=== PATIENT | male | born 1965 | race Caucasian/White ===

== ENCOUNTER 2021-08-07 09:50 | Emergency (ER) | payer SELFPAY ==
[2021-08-07 09:57] VITALS: BP 76/46; PULSE 53; RESP 16; TEMP 36.9; BMI 32.5
--- NOTE | 2021-08-07 09:59 | ECG_ITS ---
[facility] Test Date: 2021-08-07 Pat Name: Matti Lynn Department: Room: Gender: Male Federal Appellate Clerk: : 1965 Requested By: Matti Aguirre Order Number: [id number] Otilia MD: Stevie Naranjo M.D. Measurements Intervals [place] Rate: 52 P: 153 MA: 199 QRS: 237 QRSD: 132 T: 122 QT: 488 QTc: 454 Interpretive Statements SINUS BRADYCARDIA ARM LEADS REVERSED [INVERTED P AND QRS IN I] No previous ECG available for comparison Electronically Signed On 08-07-2021 10:49:46 AREA SALES MANAGER by Stevie Naranjo M.D. [id number]
[2021-08-07 10:03] VITALS: BP 76/46; PULSE 53; RESP 15; TEMP 36.9; O2SAT 91
--- NOTE | 2021-08-07 10:07 | W.ED.DIZZY ---
HPI - Dizziness General: Chief Complaint: Dizziness Stated Complaint: DIZZY/ GENERAL WEAKNESS Time Seen by Provider: 08/07/21 09:56 History of Present Illness: HPI Narrative: 56-year-old male presents to the emergency room generally weak and dizzy. He recently had some medication adjustments he has a history of A. fib with RVR he is on amiodarone he is also on carvedilol. In addition to that he is on some diuretic which evidently the dose had been changed recently. Nurse initially told me that his carvedilol was initiated recently but patient tells me has been on that for some time. MD elicited complaint: dizziness and lightheadedness Onset (ago): hour(s) Timing: gradual onset Severity: mild Description: lightheadedness, off-balance and near-syncope Context: change in medication and change in body position Exacerbating factors: movement/ambulation and change in body position Relieving factors: remaining still and lying down Associated symptoms: Denies change in hearing, chest pain, chills, cough, diaphoresis, ear discharge, ear pressure, fevers/chills, headache(s), malaise, nausea, nasal congestion, palpitations, rash, short of breath, syncope, tinnitus, vomiting or weakness Associated neuro symptoms: Deny confusion, difficulty speaking, dysphagia, diplopia, extremity weakness, facial numbness, facial weakness, gait changes, numbness in extremities or visual changes Review of Systems Const: Denies: chills, malaise or diaphoresis ENMT: Denies: ear discharge, change in hearing, tinnitus or nasal congestion Card: Denies: chest pain, palpitations or syncope GI: Denies: nausea, vomiting or dysphagia Neuro: Denies: headache(s), numbness in extremities or confusion PFS ED PFSH: Medical History Cardiac defibrillator in place CHF (congestive heart failure) Family history of internal cardiac defibrillator HTN (hypertension) Hyperlipidemia Social History Smoking and tobacco status: former smoker Alcohol intake: never Current occupational status: unemployed Physical Exam Const: COMMON NORMALS: no acute distress GENERAL APPEARANCE: cooperative and comfortable ORIENTATION/CONSCIOUSNESS: Yes awake, Yes oriented to person, Yes oriented to place and Yes oriented to time HENMT: COMMON NORMALS: normocephalic, atraumatic and hearing grossly normal bilaterally HEAD & SCALP: normocephalic and atraumatic Neck/C-Spine: COMMON NORMALS: no JVD Resp: COMMON NORMALS: normal respiratory effort, No retractions, No use of accessory muscles and clear to auscultation bilaterally AUSCULTATION: clear to auscultation bilaterally Cardio: COMMON NORMALS: no JVD, regular rhythm and No murmurs present (Cardio) RATE: bradycardic RHYTHM: regular rhythm GI: COMMON NORMALS: Soft to palpation and No hepatosplenomegaly present AUSCULTATION: Yes normoactive bowel sounds PALPATION: Yes Soft to palpation, No Tenderness to palpation present (GI), No Guarding due to palpation present (GI) and Yes No hepatosplenomegaly present Extremity: COMMON NORMALS: normal to inspection, capillary refill normal, no clubbing, cyanosis or edema, no calf tenderness and no pedal edema Neuro: SENSORIUM/ORIENTATION: Yes oriented to person, Yes oriented to place and Yes oriented to time Skin: COMMON NORMALS: no rashes or lesions noted GENERAL SKIN EXAM: no rashes or lesions noted Course Vital Signs: Vital signs: Vital Signs Temperature 98.4 F 08/07/21 10:03 Pulse Rate 53 L 08/07/21 10:03 Respiratory Rate 15 08/07/21 10:03 Blood Pressure 99/60 08/07/21 10:27 Pulse Oximetry 91 08/07/21 10:03 MDM - Dizziness MDM Narrative: Medical decision making narrative: Reviewing medications it looks as if the patient recently restarted the carvedilol and the dose was increased. environmental laboratory technician and reviewed it appeared they gone from 6.25-12.5. Suspect a lot of his symptoms are side effects from that. We will decrease his carvedilol back to 6.25 twice daily. Even if the had an increase in I think it will still resolve the issues he presents with today we did give him a little fluid his blood pressure is better he is feeling better he still somewhat bradycardic. Cutting the carvedilol down should help that asked him to schedule follow-up appointment with his primary care doctor early next week to reevaluate blood pressure and heart rate. Lab Data: Labs: Lab Results 08/07/21 08/07/21 10:03 10:03 WBC 10.6 10^3/uL H 10 ^3/uL (4.0-10.0) RBC 5.23 10^6/uL 10^6 /uL (4.1-5.3) Hgb 15.7 g/dL g/dL (11.7-16.6) Hct 48.0 % % (42.0-52.0) MCV 91.8 fl fl (80-94) MCH 30.0 pg pg (28.0-34.0) MCHC 32.7 g/dL g/dL (30.0-36.0) RDW 14.6 % % (12.1-15.1) Plt Count 228 10^3/cmm 10^3 /cmm (130-400) MPV 10.2 fL fL (7.4-10.4) Neut % (Auto) 72.8 % % Lymph % (Auto) 13.4 % % [place] % (Auto) 11.4 % % Eos % (Auto) 1.3 % % Baso % (Auto) 0.8 % % Neut # (Auto) 7.70 10^3/uL 10^3 /uL (1.8-7.7) Lymph # (Auto) 1.4 10^3/uL 10^3/ uL (0.8-4.8) [place] # (Auto) 1.2 10^3/uL H 10^ 3/uL (0.2-0.9) Eos # (Auto) 0.1 10^3/uL 10^3/ uL (0.0-0.8) Baso # (Auto) 0.1 10^3/uL 10^3/ uL (0.0-0.1) Nucleated RBC % (a uto) 0 % % Nucleated RBCs # 0.0 /100WBC /100W BC Sodium 141 mmol/L mmol/L (136-145) Potassium 4.1 mmol/L mmol/L (3.5-5.1) Chloride 106 mmol/L mmol/L (98-107) Carbon Dioxide 26 mmol/L mmol/L (22-29) Anion Gap 13.1 (5-19) BUN 22 mg/dL H mg/dL (6-20) Creatinine 1.8 mg/dL H mg/dL (0.7-1.2) GFR Calculation 39.1 mL/min L mL/ min (90-130) Glucose 94 mg/dL mg/dL (65-115) Calculated Osmolal ity 295 mOsm/kg mOsm/ kg (285-295) Calcium 8.2 mg/dL L mg/dL (8.5-10.5) Total Bilirubin 1.0 mg/dL mg/dL (0.15-1.2) AST 15 U/L U/L (0-40) ALT 15 U/L U/L (0-41) Alkaline Phosphata se 115 IU/L IU/L (40-130) Total Protein 6.6 g/dL g/dL (6.6-8.7) Albumin 3.7 g/dL g/dL (3.5-5.2) Globulin 2.9 g/dL g/dL (1.3-4.6) Discharge Plan Discharge Patient Disposition: Home Clinical Impression: Orthostatic hypotension, HTN (hypertension), Bradycardia, Medication side effects Condition: Stable Prescriptions: Changed carvedilol 12.5 mg tablet 6.25 mg PO BID Qty: 60 RF: 2 No Action amiodarone 200 mg tablet 200 mg PO DAILY Qty: 30 RF: 2 Eliquis 5 mg tablet 5 mg PO BID Qty: 60 RF: 2 atorvastatin [Lipitor] 10 mg tablet 10 mg PO DAILY Qty: 30 RF: 2 clopidogrel [Plavix] 75 mg tablet 75 mg PO DAILY Qty: 30 RF: 2 spironolactone 25 mg tablet 25 mg PO QAM Qty: 30 RF: 2 Ventolin HFA 90 mcg/actuation HFA aerosol inhaler 2 puff inhalation Q9H PRN (Reason: shortness of breath or wheezing) RF: 0 bumetanide 2 mg tablet 2 mg PO QAM RF: 0 Benicar 40 mg tablet 20 mg PO BID RF: 0 Discharge Orders: Discharge ED (Routine); Ordered 08/07/21 Ordered By: Matti Martinez Discharge Diet: Usual diet Discharge Activity: Increase activity as tolerated Patient Instructions: Opioid Safety Activity Restrictions/Additional Instructions: Recheck blood pressure and pulse with your primary care doctor in the next 3 to 4 days. Decrease carvedilol to 6.25 (half tablet) twice daily. Coding Level of Care Code ED Motorcycle Riding Instructor for Chg Fwd Exam Comprehensive
[2021-08-07 10:10] LABS: Basophils # 0.1 10^3/uL (0.0-0.1); Basophils % 0.8 %; Eosinophils # 0.1 10^3/uL (0.0-0.8); Eosinophils % 1.3 %; Hemoglobin 15.7 g/dL (11.7-16.6); Lymphocytes # 1.4 10^3/uL (0.8-4.8); Lymphocytes % 13.4 %; Mean Corpuscular HGB Conc 32.7 g/dL (30.0-36.0); Mean Corpuscular Volume 91.8 fl (80-94); Mean Platelet Volume 10.2 fL (7.4-10.4); Monocytes # 1.2 10^3/uL (0.2-0.9); Monocytes % 11.4 %; Neutrophils % 72.8 %; Nucleated Red Blood Cells % 0 %; Platelet Count 228 10^3/cmm (130-400); Red Blood Count 5.23 10^6/uL (4.1-5.3); Red Cell Distribution Width 14.6 % (12.1-15.1); White Blood Count 10.6 10^3/uL (4.0-10.0)
[2021-08-07] MEDS: sodium chloride 0.9% 500 ML 999 ML IV (10:20)
[2021-08-07 10:27] VITALS: BP 78/43; BP 84/44; BP 99/60
[2021-08-07 10:29] LABS: Alanine Aminotransferase 15 U/L (0-41); Albumin Level 3.7 g/dL (3.5-5.2); Alkaline Phosphatase 115 IU/L (40-130); Anion Gap 13.1 (5-19); Aspartate Amino Transferase 15 U/L (0-40); Blood Urea Nitrogen 22 mg/dL (6-20); Calcium 8.2 mg/dL (8.5-10.5); Carbon Dioxide 26 mmol/L (22-29); Chloride 106 mmol/L (98-107); Globulin 2.9 g/dL (1.3-4.6); Glomerular Filtration Rate 39.1 mL/min (90-130); Glucose 94 mg/dL (65-115); Osmolality Calculated 295 mOsm/kg (285-295); Potassium 4.1 mmol/L (3.5-5.1); Sodium 141 mmol/L (136-145); Total Protein 6.6 g/dL (6.6-8.7)
--- NOTE | 2021-08-07 11:12 | PC.NURSE ---
Pt arrived via EMS from [facility]. Pt was started on his regularly scheduled medication last night and was given medication again this morning, it is noted by staff pt has BP medication that he took last night and this morning. Pt states after he ate breakfast he began feeling dizzy and slightly nauseated. Pt reports he felt like he was going to pass out, EMS was called. EMS reports pts BP at 61/42 on arrival, pt given 1000mL bolus NS, which brought BP up slight;ly to 79/50. Pt placed on NC@2L when SATs dropped to 88% on RA. Blood glucose 125, Pt A/O x4, vs taken. Pt BP 76/46 on arrival to ER. Pt placed on monitor, deputy director at bedside
== END 2021-08-07 14:03 | disposition home or self-care (01) ==
PROVIDERS: Emergency Provider Family Medicine
DX: I95.1 Orthostatic hypotension (principal); R00.1 Bradycardia, unspecified; T50.905A Adverse effect of unspecified drugs, medicaments and biological substances, initial encounter; Z79.01 Long term (current) use of anticoagulants; Z79.02 Long term (current) use of antithrombotics/antiplatelets; I11.0 Hypertensive heart disease with heart failure; I50.9 Heart failure, unspecified; E78.5 Hyperlipidemia, unspecified; Z95.810 Presence of automatic (implantable) cardiac defibrillator; Z87.891 Personal history of nicotine dependence
CPT/HCPCS: 80053; 85025; 93005; 99284; 99291; J7040

== ENCOUNTER 2021-08-31 21:49 | Emergency (ER) | payer SELFPAY ==
[2021-08-31 22:11] VITALS: BP 89/60; PULSE 54; RESP 18; TEMP 36.1; O2SAT 94; BMI 31.7
--- NOTE | 2021-08-31 22:15 | XRR_ITS ---
PROCEDURE INFORMATION: Exam: XR Chest Exam date and time: 08/31/2021 10:15 PM Age: 56 years old Clinical indication: Injury or trauma; Fall; Blunt trauma (contusions or hematomas); Injury date: ; Injury details: Fell today; Additional info: Syncope TECHNIQUE: Imaging protocol: XR of the chest. Views: 1 view. COMPARISON: No relevant prior studies available. FINDINGS: Tubes, catheters and devices: An AICD is present in the left anterior chest wall with its lead projecting in the region of the right ventricle. Lungs: The lungs are clear. Pleural spaces: Unremarkable. No pleural effusion. No pneumothorax. Heart/Mediastinum: The heart is normal in size. Prominent left coronary artery calcifications are appreciated. Bones/joints: No acute fracture is seen. XR/XR chest 1V portable [id number] IMPRESSION: No acute cardiopulmonary abnormality.
--- NOTE | 2021-08-31 22:15 | XRR_ITS ---
PROCEDURE INFORMATION: Exam: XR Lumbosacral Spine Exam date and time: 08/31/2021 10:15 PM Age: 56 years old Clinical indication: Injury or trauma; Fall; Blunt trauma (contusions or hematomas) TECHNIQUE: Imaging protocol: XR of the lumbosacral spine. Views: 2 or 3 views. COMPARISON: No relevant prior studies available. FINDINGS: Mild degenerative changes are seen in the lumbar spine consisting mostly of tiny anterior endplate osteophytes. Mild disc space narrowing and endplate sclerosis is also present at L5-S1. No acute fracture. Spinal alignment is normal. XR/XR lumbar spine 2-3V* [id number] IMPRESSION: No lumbar spine fracture.
--- NOTE | 2021-08-31 22:15 | CTR_ITS ---
PROCEDURE INFORMATION: Exam: CT Head Without Contrast Exam date and time: 08/31/2021 10:15 PM Age: 56 years old Clinical indication: Injury or trauma; Fall; Blunt trauma (contusions or hematomas); Consciousness not specified TECHNIQUE: Imaging protocol: Computed tomography of the head without contrast. Radiation optimization: All CT scans at this facility use at least one of these dose optimization techniques: automated exposure control; mA and/or kV adjustment per patient size (includes targeted exams where dose is matched to clinical indication); or iterative reconstruction. COMPARISON: No relevant prior studies available. RADIATION DOSE METRICS: Total DLP (mGy-cm): 855.03 FINDINGS: Brain: Normal. No hemorrhage. Unremarkable white matter. No mass effect. Cerebral ventricles: No ventriculomegaly. Paranasal sinuses: Visualized sinuses are unremarkable. No fluid levels. Mastoid air cells: Visualized mastoid air cells are well aerated. Bones/joints: Unremarkable. No acute fracture. Soft tissues: Unremarkable. CT/CT head wo con* [id number] IMPRESSION: No acute intracranial abnormality.
--- NOTE | 2021-08-31 22:15 | ECG_ITS ---
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 Measurements Intervals [place] Rate: 53 P: 56 ND: 228 QRS: -66 QRSD: 170 T: 117 QT: 499 QTc: 470 Interpretive Statements SINUS BRADYCARDIA WITH FIRST DEGREE AV BLOCK LEFT AXIS DEVIATION [QRS AXIS < -30] LEFT BUNDLE BRANCH BLOCK [120+ ms QRS DURATION, 80+ ms Q/S IN V1/V2, 85+ ms R IN I/aVL/V5/V6] Compared to ECG 08/07/2021 10:01:57 First degree AV block now present Left-axis deviation now present Left bundle-branch block now present Electronically Signed On 09-01-2021 17:24:03 INSTRUCTOR DECORATING by Olga Osorio M.D. [id number]
--- NOTE | 2021-08-31 22:15 | CTR_ITS ---
PROCEDURE INFORMATION: Exam: CT Cervical Spine Without Contrast Exam date and time: 08/31/2021 10:15 PM Age: 56 years old Clinical indication: Injury or trauma; Fall; Blunt trauma TECHNIQUE: Imaging protocol: Computed tomography images of the cervical spine without contrast. Radiation optimization: All CT scans at this facility use at least one of these dose optimization techniques: automated exposure control; mA and/or kV adjustment per patient size (includes targeted exams where dose is matched to clinical indication); or iterative reconstruction. COMPARISON: CT head wo con* [id number] 08/31/2021 10:31 PM RADIATION DOSE METRICS: Total DLP (mGy-cm): 695.15 FINDINGS: Vertebrae: [id number] degenerative changes are present in the lower cervical spine. Mild canal stenosis is present at C4-C5 and C5-C6 secondary to chronic changes. No acute fracture. Spinal straightening may be due to positioning or muscle spasm. Soft tissues: Unremarkable. Lungs: Lung apices are normal. CT/CT cervical spin wo con* [id number] IMPRESSION: No cervical spine fracture.
--- NOTE | 2021-08-31 22:18 | W.ED.SYNCOPE ---
HPI - Syncope General: Chief Complaint: Syncope Stated Complaint: FALL Time Seen by Provider: 08/31/21 22:12 Source: patient and EMS Mode of arrival: EMS Limitations: no limitations History of Present Illness: HPI narrative: 56-year-old male who is [facility] from [facility] after syncopal event. He has been having syncopal events for the last few weeks actually seen a nurse practitioner today due to his hypotension causing the syncopal events he is on multiple meds including carvedilol Eliquis and Bumex she did cut down his carvedilol but started him on Zanaflex for back spasms. He states he did take Zanaflex today when he stood up he felt lightheaded passed out EMS states original blood pressure was in the 70s blood pressure currently is 120/76 he states that he hit his head has had neck pain from that fall he was supposed to get an x-ray of his L-spine outpatient but has not yet from his previous fall and has continues to have low back pain denies any lower extremity weakness. Associated symptoms: Reports headache(s); Deny abdominal pain, fever(s) or nausea Review of Systems Const: Denies: fever(s), chills, body aches or change in appetite Eyes: Denies: blurry vision or eye discomfort ENMT: Denies: throat pain or dental pain Card: Reports: syncope Resp: Denies: dyspnea GI: Denies: abdominal pain, nausea, vomiting or diarrhea : Denies: dysuria Musc: Reports: neck pain and back pain Skin/Breast: Denies: rash Neuro: Reports: headache(s) Psych: Denies: depression Berny/Lymph: Denies: easy bruising All/Imm: Denies: urticaria PFSH ED PFSH: Medical History Cardiac defibrillator in place CHF (congestive heart failure) Family history of internal cardiac defibrillator HTN (hypertension) Hyperlipidemia Social History Smoking and tobacco status: former smoker Alcohol intake: never Current occupational status: unemployed Physical Exam Const: COMMON NORMALS: no acute distress, patient oriented x3 and healthy appearing HENMT: COMMON NORMALS: normocephalic and atraumatic HEAD & SCALP: normocephalic and atraumatic Eye: COMMON NORMALS: Equal, round and reactive pupils present and EOMs intact bilaterally PUPIL: Yes Equal, round and reactive pupils present Neck/C-Spine: OTHER: In c-collar complaining of neck pain Chest: COMMONS NORMALS: normal inspection of the chest and normal palpation of entire chest wall Resp: COMMON NORMALS: normal respiratory effort, No retractions, No use of accessory muscles and clear to auscultation bilaterally AUSCULTATION: clear to auscultation bilaterally Cardio: COMMON NORMALS: regular rate, regular rhythm and No murmurs present (Cardio) RATE: regular rate RHYTHM: regular rhythm GI: COMMON NORMALS: Normal to inspection, nondistended, normoactive bowel sounds present, Soft to palpation, non-tender and no masses PALPATION: Yes Soft to palpation Back/Pelvis: OTHER: Slight tenderness over the lumbar spine no obvious deformity Extremity: COMMON NORMALS: normal to inspection and full ROM Neuro: COMMON NORMALS: patient oriented x3, moves all extremities and no focal motor deficits Psych: COMMON NORMALS: mental status grossly normal, Normal thought process present and cooperative THOUGHT PROCESS: Normal thought process present Skin: COMMON NORMALS: no rashes or lesions noted and no wounds GENERAL SKIN EXAM: no rashes or lesions noted Course Vital Signs: Vital signs: Vital Signs Temperature 97.0 F L 08/31/21 22:11 Pulse Rate 54 L 08/31/21 22:11 Respiratory Rate 18 08/31/21 22:11 Blood Pressure 89/60 08/31/21 22:11 Pulse Oximetry 94 08/31/21 22:11 MDM - Syncope MDM Narrative: Medical decision making narrative: Patient presents here with syncopal event likely due to hypotension. I believe the Zanaflex is likely causing him some hypotension along with his other meds. Blood pressure here is stabilized he is 119/64 upon standing here. Slightly elevated creatinine improved with IV fluids he is continue to hydrate and the gel will stop the Zanaflex he is to hold his carvedilol if his blood pressure is under 120. I informed him and the lockstitch zipper setter of this he is stable for discharge return if worsening follow-up with PCP. Lab Data: Labs: Lab Results 08/31/21 08/31/21 08/31/21 00:04 22:20 22:20 WBC 8.1 10^3/uL 10^3/ uL (4.0-10.0) RBC 4.90 10^6/uL 10^6 /uL (4.1-5.3) Hgb 14.7 g/dL g/dL (11.7-16.6) Hct 44.1 % % (42.0-52.0) MCV 90.0 fl fl (80-94) MCH 30.0 pg pg (28.0-34.0) MCHC 33.3 g/dL g/dL (30.0-36.0) RDW 12.8 % % (12.1-15.1) Plt Count 206 10^3/cmm 10^3 /cmm (130-400) MPV 10.9 fL H fL (7.4-10.4) Neut % (Auto) 64.1 % % Lymph % (Auto) 20.2 % % [place] % (Auto) 11.2 % % Eos % (Auto) 3.1 % % Baso % (Auto) 1.2 % % Neut # (Auto) 5.21 10^3/uL 10^3 /uL (1.8-7.7) Lymph # (Auto) 1.6 10^3/uL 10^3/ uL (0.8-4.8) [place] # (Auto) 0.9 10^3/uL 10^3/ uL (0.2-0.9) Eos # (Auto) 0.3 10^3/uL 10^3/ uL (0.0-0.8) Baso # (Auto) 0.1 10^3/uL 10^3/ uL (0.0-0.1) Nucleated RBC % (a uto) 0 % % Nucleated RBCs # 0.0 /100WBC /100W BC Sodium Cancelled 135 mmol/L L mmol /L (136-145) Potassium Cancelled 4.9 mmol/L mmol/L (3.5-5.1) Chloride Cancelled 101 mmol/L mmol/L (98-107) Carbon Dioxide Cancelled 22 mmol/L mmol/L (22-29) Anion Gap Cancelled 16.9 (5-19) BUN Cancelled 57 mg/dL H mg/dL (6-20) Creatinine Cancelled 2.6 mg/dL H mg/dL (0.7-1.2) GFR Calculation Cancelled 25.6 mL/min L mL/ min (90-130) Glucose Cancelled 105 mg/dL mg/dL (65-115) Calculated Osmolal ity Cancelled 296 mOsm/kg H mOs m/kg (285-295) Calcium Cancelled 8.3 mg/dL L mg/dL (8.5-10.5) Total Bilirubin 0.3 mg/dL mg/dL (0.15-1.2) AST 12 U/L U/L (0-40) ALT 9 U/L U/L (0-41) Alkaline Phosphata se 119 IU/L IU/L (40-130) Troponin T Baselin e Troponin T 120 Min [place] Delta Troponin T Total Protein 6.0 g/dL L g/dL (6.6-8.7) Albumin 3.9 g/dL g/dL (3.5-5.2) Globulin 2.1 g/dL g/dL (1.3-4.6) 08/31/21 09/01/21 09/01/21 22:20 00:04 00:04 WBC RBC Hgb Hct MCV MCH MCHC RDW Plt Count MPV Neut % (Auto) Lymph % (Auto) [place] % (Auto) Eos % (Auto) Baso % (Auto) Neut # (Auto) Lymph # (Auto) [place] # (Auto) Eos # (Auto) Baso # (Auto) Nucleated RBC % (a uto) Nucleated RBCs # Sodium 140 mmol/L mmol/L (136-145) Potassium 5.0 mmol/L mmol/L (3.5-5.1) Chloride 107 mmol/L mmol/L (98-107) Carbon Dioxide 21 mmol/L L mmol/ L (22-29) Anion Gap 17.0 (5-19) BUN 53 mg/dL H mg/dL (6-20) Creatinine 2.2 mg/dL H mg/dL (0.7-1.2) GFR Calculation 31.0 mL/min L mL/ min (90-130) Glucose 98 mg/dL mg/dL (65-115) Calculated Osmolal ity 304 mOsm/kg H mOs m/kg (285-295) Calcium 8.5 mg/dL mg/dL (8.5-10.5) Total Bilirubin AST ALT Alkaline Phosphata se Troponin T Baselin e 30 ng/L H ng/L (0-15) Troponin T 120 Min [place] 26.50 ng/L H ng/L (0-15) Delta Troponin T -3.50 ABS# L ABS# (0-10) Total Protein Albumin Globulin Imaging Data^: CXR: My impression: no acute abnormality xr l spine: Attestation: I personally reviewed and interpreted this imaging study as follows: My impression: no acute abnormality CT Head: Radiologist's impression: No acute intracranial abnormality. Other CT: Radiologist's impression: IMPRESSION: No cervical spine fracture. EKG Data^: EKG 1: Attestation: I personally reviewed and interpreted this EKG as follows: EKG interpretation date: 08/31/21 EKG interpretation time: 22:12 Interpretation: sinus jasson hr [address] or t wave abnormalities qrs 170 qtc 481 EKG 2: Attestation: I personally reviewed and interpreted this EKG as follows: EKG interpretation date: 09/01/21 EKG interpretation time: 00:29 Interpretation: sinus brdy hr [address] or t wave abnormalities qrs 173 qtc 487 Discharge Plan Discharge Patient Disposition: Home Clinical Impression: Vasovagal syncope Condition: Stable Prescriptions: Discontinued tizanidine 4 mg capsule 4 mg PO BID PRN (Reason: muscle spasticity) Qty: 20 RF: 0 No Action amiodarone 200 mg tablet 200 mg PO DAILY Qty: 30 RF: 2 Eliquis 5 mg tablet 5 mg PO BID Qty: 60 RF: 2 atorvastatin [Lipitor] 10 mg tablet 10 mg PO DAILY Qty: 30 RF: 2 clopidogrel [Plavix] 75 mg tablet 75 mg PO DAILY Qty: 30 RF: 2 spironolactone 25 mg tablet 25 mg PO QAM Qty: 30 RF: 2 aspirin [Adult Low Dose Aspirin] 81 mg tablet,delayed release (DR/EC) 81 mg PO DAILY RF: 0 Benicar 20 mg tablet 10 mg PO BID Qty: 30 RF: 2 Ventolin HFA 90 mcg/actuation HFA aerosol inhaler 2 puff inhalation Q9H PRN (Reason: shortness of breath or wheezing) RF: 0 bumetanide 2 mg tablet 2 mg PO QAM RF: 0 carvedilol 12.5 mg tablet 6.25 mg PO BID Qty: 60 RF: 2 Discharge Orders: Discharge ED (Routine); Ordered 09/01/21 Ordered By: Mi Morales Discharge Diet: Advance as tolerated Discharge Activity: Resume usual activity Patient Instructions: Syncope (ED) Activity Restrictions/Additional Instructions: Please stop patient's tizanidine. Hold blood pressure meds carvedilol if systolic blood pressure is less than 120 Coding Level of Care Code ED Traffic Workforce Representative for Yesika Fwd Exam Comprehensive
[2021-08-31 22:27] LABS: Basophils # 0.1 10^3/uL (0.0-0.1); Basophils % 1.2 %; Eosinophils # 0.3 10^3/uL (0.0-0.8); Eosinophils % 3.1 %; Hematocrit 44.1 % (42.0-52.0); Hemoglobin 14.7 g/dL (11.7-16.6); Lymphocytes # 1.6 10^3/uL (0.8-4.8); Lymphocytes % 20.2 %; Mean Corpuscular HGB Conc 33.3 g/dL (30.0-36.0); Mean Platelet Volume 10.9 fL (7.4-10.4); Monocytes # 0.9 10^3/uL (0.2-0.9); Monocytes % 11.2 %; Neutrophils # 5.21 10^3/uL (1.8-7.7); Neutrophils % 64.1 %; Nucleated Red Blood Cells % 0 %; Platelet Count 206 10^3/cmm (130-400); Red Cell Distribution Width 12.8 % (12.1-15.1); White Blood Count 8.1 10^3/uL (4.0-10.0)
[2021-08-31 22:43] LABS: Troponin(5th) Baseline 30 ng/L (0-15)
[2021-08-31] MEDS: sodium chloride 0.9% 1,000 ML 999 ML IV (22:48)
[2021-08-31 22:50] LABS: Alanine Aminotransferase 9 U/L (0-41); Albumin Level 3.9 g/dL (3.5-5.2); Alkaline Phosphatase 119 IU/L (40-130); Aspartate Amino Transferase 12 U/L (0-40); Blood Urea Nitrogen 57 mg/dL (6-20); Calcium 8.3 mg/dL (8.5-10.5); Carbon Dioxide 22 mmol/L (22-29); Chloride 101 mmol/L (98-107); Globulin 2.1 g/dL (1.3-4.6); Glomerular Filtration Rate 25.6 mL/min (90-130); Glucose 105 mg/dL (65-115); Osmolality Calculated 296 mOsm/kg (285-295); Sodium 135 mmol/L (136-145); Total Bilirubin 0.3 mg/dL (0.15-1.2)
[2021-08-31 22:52] LABS: Anion Gap 16.9 (5-19); Potassium 4.9 mmol/L (3.5-5.1)
[2021-08-31] MEDS: sodium chloride 0.9% 500 ML 999 ML IV (23:32)
--- NOTE | 2021-09-01 00:15 | ECG_ITS ---
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 Measurements Intervals [place] Rate: 58 P: 29 PA: 200 QRS: -66 QRSD: 173 T: 71 QT: 490 QTc: 483 Interpretive Statements SINUS BRADYCARDIA LEFT AXIS DEVIATION [QRS AXIS < -30] LEFT BUNDLE BRANCH BLOCK [120+ ms QRS DURATION, 80+ ms Q/S IN V1/V2, 85+ ms R IN I/aVL/V5/V6] Compared to ECG 08/07/2021 10:01:57 Left-axis deviation now present Left bundle-branch block now present Electronically Signed On 09-01-2021 17:27:14 APPLICATION DEVELOPMENT SPECIALIST by Olga Osorio M.D. [id number]
[2021-09-01 01:04] LABS: Sodium 140 mmol/L (136-145)
[2021-09-01 01:05] LABS: Blood Urea Nitrogen 53 mg/dL (6-20); Calcium 8.5 mg/dL (8.5-10.5); Carbon Dioxide 21 mmol/L (22-29); Chloride 107 mmol/L (98-107); Glucose 98 mg/dL (65-115); Osmolality Calculated 304 mOsm/kg (285-295)
[2021-09-01 02:03] VITALS: BP 119/64; PULSE 60; RESP 18; O2SAT 94
== END 2021-09-01 02:05 | disposition home or self-care (01) ==
PROVIDERS: Emergency Provider Emergency Medicine
DX: R55 Syncope and collapse (principal); Z79.01 Long term (current) use of anticoagulants; Z79.02 Long term (current) use of antithrombotics/antiplatelets; Z79.82 Long term (current) use of aspirin; I11.0 Hypertensive heart disease with heart failure; I50.9 Heart failure, unspecified; E78.5 Hyperlipidemia, unspecified; Z87.891 Personal history of nicotine dependence
CPT/HCPCS: 36415; 70450; 71045; 72100; 72125; 80048; 80053; 80061; 82043; 83880; 84443; 84484; 85025; 93005; 96360; 99283; J7030; J7040

== ENCOUNTER → 2021-09-28 08:27 | Outpatient (BNVA) | payer SELFPAY | PROVIDERS: Visit Provider Nurse Practitioner Family | DX: N18.9 Chronic kidney disease, unspecified (principal) | CPT/HCPCS: 80048 ==

== ENCOUNTER 2021-12-01 01:39 | Emergency (ER) | payer SELFPAY ==
[2021-12-01 01:39] VITALS: BP 144/77; PULSE 63; RESP 19; TEMP 36.6; O2SAT 93; BMI 33.2
--- NOTE | 2021-12-01 01:39 | ECG_ITS ---
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 Measurements Intervals [place] Rate: 64 P: 69 OR: 208 QRS: -54 QRSD: 145 T: 79 QT: 462 QTc: 479 Interpretive Statements SINUS RHYTHM LEFT AXIS DEVIATION [QRS AXIS < -30] LEFT BUNDLE BRANCH BLOCK [120+ ms QRS DURATION, 80+ ms Q/S IN V1/V2, 85+ ms R IN I/aVL/V5/V6] Compared to ECG 09/01/2021 00:29:10 Sinus bradycardia no longer present Electronically Signed On 12-01-2021 23:19:59 CDT by Olga Osorio M.D. [id number]
--- NOTE | 2021-12-01 01:42 | XRR_ITS ---
PROCEDURE INFORMATION: Exam: XR Chest Exam date and time: 12/01/2021 2:11 AM Age: 56 years old Clinical indication: Pain; Chest pressure; Prior surgery; Surgery date: 6+ months; Surgery type: Defib; Additional info: Cp TECHNIQUE: Imaging protocol: XR of the chest. Views: 1 view. COMPARISON: CR XR chest 1V portable [id number] 08/31/2021 10:30 PM FINDINGS: Tubes, catheters and devices: A right pacemaker/defibrillator device is present and its lead is in appropriate position. Lungs: There is no evidence of focal pulmonary consolidation. Linear opacities at the lung bases are consistent with atelectasis Pleural spaces: No pleural effusion or pneumothorax. Heart/Mediastinum: The heart is top-normal in size. Bones/joints: No acute fracture is identified. XR/XR chest 1V portable [id number] IMPRESSION: 1. Pacemaker/defibrillator with its tip in the right ventricle. 2. Mild bibasilar atelectatic changes.
--- NOTE | 2021-12-01 01:43 | W.ED.CHESTPA ---
HPI - Chest Pain General: Chief Complaint: Chest Pain Stated Complaint: cp Source: patient and EMS Mode of arrival: EMS Limitations: no limitations History of Present Illness: 56-year-old male who is here from correction night has been having chest pain started roughly 2-1/2 to 3 hours ago. He states he has a history of congestive heart failure he has has a defibrillator as well states pain is sharp in nature mainly over the left side of his chest he states that since being picked up by EMS he has had resolution of his pain. He states he is currently pain-free. He states he was on oxygen before he was incarcerated he has been in correction for 120 days has not had his home oxygen states that once he is placed on oxygen he did feel improved he has not had any hypoxia though. Associated symptoms: Reports dyspnea; Deny abdominal pain, fever(s), nausea or vomiting Review of Systems Const: Denies: fever(s), chills, body aches or change in appetite Eyes: Denies: blurry vision or eye discomfort ENMT: Denies: throat pain or dental pain Card: Reports: chest pain Resp: Reports: dyspnea GI: Denies: abdominal pain, nausea, vomiting or diarrhea : Denies: dysuria Musc: Denies: neck pain or back pain Skin/Breast: Denies: rash Neuro: Denies: headache(s) Psych: Denies: depression Berny/Lymph: Denies: easy bruising All/Imm: Denies: urticaria PFS ED PFSH: Medical History Cardiac defibrillator in place CHF (congestive heart failure) Family history of internal cardiac defibrillator HTN (hypertension) Hyperlipidemia Social History Smoking and tobacco status: former smoker Alcohol intake: never Current occupational status: unemployed Physical Exam Const: COMMON NORMALS: no acute distress, patient oriented x3 and healthy appearing HENMT: COMMON NORMALS: normocephalic and atraumatic HEAD & SCALP: normocephalic and atraumatic Eye: COMMON NORMALS: Equal, round and reactive pupils present and EOMs intact bilaterally PUPIL: Yes Equal, round and reactive pupils present Neck/C-Spine: COMMON NORMALS: full ROM and supple Chest: COMMONS NORMALS: normal inspection of the chest and normal palpation of entire chest wall Resp: COMMON NORMALS: normal respiratory effort, No retractions, No use of accessory muscles and clear to auscultation bilaterally AUSCULTATION: clear to auscultation bilaterally Cardio: COMMON NORMALS: regular rate, regular rhythm and No murmurs present (Cardio) RATE: regular rate RHYTHM: regular rhythm GI: COMMON NORMALS: Normal to inspection, nondistended, normoactive bowel sounds present, Soft to palpation, non-tender and no masses PALPATION: Yes Soft to palpation Extremity: COMMON NORMALS: normal to inspection and full ROM Neuro: COMMON NORMALS: patient oriented x3, moves all extremities and no focal motor deficits Psych: COMMON NORMALS: mental status grossly normal, Normal thought process present and cooperative THOUGHT PROCESS: Normal thought process present Skin: COMMON NORMALS: no rashes or lesions noted and no wounds GENERAL SKIN EXAM: no rashes or lesions noted Course Vital Signs: Vital signs: Vital Signs Temperature 97.8 F 12/01/21 01:39 Pulse Rate 59 L 12/01/21 04:00 Respiratory Rate 16 12/01/21 04:00 Blood Pressure 120/60 12/01/21 04:00 Pulse Oximetry 91 12/01/21 04:00 MDM - Chest Pain Medical Decision Making Patient presents for chest pains atypical in nature his initial and repeat troponins here are normal other blood work x-ray and EKG are normal he has been pain-free here he stable for discharge back to correction he is to follow-up with PCP and return if worsening. Lab Data : 12/01/21 01:50 12/01/21 01:50 Laboratory Results WBC 7.5 10^3/uL (4.0-10.0) 12/01/21 01:50 RBC 4.27 10^6/uL (4.1-5.3) 12/01/21 01:50 Hgb 13.2 g/dL (11.7-16.6) 12/01/21 01:50 Hct 40.6 % (42.0-52.0) L 12/01/21 01:50 MCV 95.1 fl (80-94) H 12/01/21 01:50 MCH 30.9 pg (28.0-34.0) 12/01/21 01:50 MCHC 32.5 g/dL (30.0-36.0) 12/01/21 01:50 RDW 12.7 % (12.1-15.1) 12/01/21 01:50 Plt Count 240 10^3/cmm (130-400) 12/01/21 01:50 MPV 10.5 fL (7.4-10.4) H 12/01/21 01:50 Neut % (Auto) 52.4 % 12/01/21 01:50 Lymph % (Auto) 29.6 % 12/01/21 01:50 [place] % (Auto) 12.9 % 12/01/21 01:50 Eos % (Auto) 2.9 % 12/01/21 01:50 Baso % (Auto) 1.9 % 12/01/21 01:50 Neut # (Auto) 3.92 10^3/uL (1.8-7.7) 12/01/21 01:50 Lymph # (Auto) 2.2 10^3/uL (0.8-4.8) 12/01/21 01:50 [place] # (Auto) 1.0 10^3/uL (0.2-0.9) H 12/01/21 01:50 Eos # (Auto) 0.2 10^3/uL (0.0-0.8) 12/01/21 01:50 Baso # (Auto) 0.1 10^3/uL (0.0-0.1) 12/01/21 01:50 Nucleated RBC % (auto) 0 % 12/01/21 01:50 Nucleated RBCs # 0.0 /100WBC 12/01/21 01:50 PT 15.00 SECONDS (12.1-14.9) H 12/01/21 01:50 INR 1.14 (0.8-1.2) 12/01/21 01:50 Sodium 141 mmol/L (136-145) 12/01/21 01:50 Potassium 4.2 mmol/L (3.5-5.1) 12/01/21 01:50 Chloride 104 mmol/L (98-107) 12/01/21 01:50 Carbon Dioxide 26 mmol/L (22-29) 12/01/21 01:50 Anion Gap 15.2 (5-19) 12/01/21 01:50 BUN 37 mg/dL (6-20) H 12/01/21 01:50 Creatinine 1.5 mg/dL (0.7-1.2) H 12/01/21 01:50 GFR Calculation 48.2 mL/min (90-130) L 12/01/21 01:50 Glucose 110 mg/dL (65-115) 12/01/21 01:50 Calculated Osmolality 301 mOsm/kg (285-295) H 12/01/21 01:50 Calcium 8.3 mg/dL (8.5-10.5) L 12/01/21 01:50 Total Bilirubin 0.3 mg/dL (0.15-1.2) 12/01/21 01:50 AST 14 U/L (0-40) 12/01/21 01:50 ALT 14 U/L (0-41) 12/01/21 01:50 Alkaline Phosphatase 113 IU/L (40-130) 12/01/21 01:50 Troponin T Baseline 21 ng/L (0-15) H 12/01/21 01:50 Troponin T 120 Minute 20.90 ng/L (0-15) H 12/01/21 03:36 Delta Troponin T -0.10 ABS# (0-10) L 12/01/21 03:36 NT-Pro-B Natriuret Pep 251 pg/mL (0-125) H 12/01/21 01:50 Total Protein 7.5 g/dL (6.6-8.7) 12/01/21 01:50 Albumin 4.3 g/dL (3.5-5.2) 12/01/21 01:50 Globulin 3.2 g/dL (1.3-4.6) 12/01/21 01:50 EKG Data EKG 1: I personally reviewed and interpreted this EKG as follows: EKG interpretation date: 12/01/21 EKG interpretation time: 01:45 Interpretation: nsr hr [address] or t wave abnormalities qrs 145 qtc 472 EKG 2: I personally reviewed and interpreted this EKG as follows: EKG interpretation date: 12/01/21 EKG interpretation time: 03:43 Interpretation: sinus jasson hr [address] or t wave abnormalitites qrs 143 qtc 474 Discharge Plan Discharge Patient Disposition: Home Clinical Impression: Chest pain Qualifiers: Chest pain type: unspecified Qualified Code(s): R07.9 - Chest pain, unspecified Condition: Stable Prescriptions: No Action amiodarone 200 mg tablet 200 mg PO DAILY Qty: 30 2RF Eliquis 5 mg tablet 5 mg PO BID Qty: 60 2RF aspirin [Adult Low Dose Aspirin] 81 mg tablet,delayed release (DR/EC) 81 mg PO DAILY 0RF Benicar 20 mg tablet 10 mg PO BID Qty: 30 2RF amoxicillin-pot clavulanate [Augmentin] 875-125 mg tablet 1 tab PO BID 10 Days Qty: 20 0RF Mucinex 1,200 mg tablet extended release 12hr 1,200 mg PO BID PRN (Reason: cough or congestion) Qty: 20 0RF spironolactone 25 mg tablet See Rx Instructions .ROUTE .COMPLEX Qty: 30 2RF Dose Instruction: TAKE ONE TABLET BY MOUTH EVERY MORNING FOR HEART AND FLUID. Rx Instructions: TAKE ONE TABLET BY MOUTH EVERY MORNING FOR HEART AND FLUID. clopidogrel 75 mg tablet See Rx Instructions .ROUTE .COMPLEX Qty: 30 5RF Dose Instruction: TAKE ONE TABLET BY MOUTH DAILY FOR BLOOD THINNING. Rx Instructions: TAKE ONE TABLET BY MOUTH DAILY FOR BLOOD THINNING. atorvastatin 10 mg tablet See Rx Instructions .ROUTE .COMPLEX Qty: 30 5RF Dose Instruction: TAKE ONE TABLET BY MOUTH DAILY. Rx Instructions: TAKE ONE TABLET BY MOUTH DAILY. fluticasone propionate 50 mcg/actuation spray,suspension See Rx Instructions .ROUTE .COMPLEX Qty: 16 1RF Dose Instruction: INSTILL one SPRAY intranasally TWICE DAILY NEEDED FOR nasal congestion Rx Instructions: INSTILL one SPRAY intranasally TWICE DAILY NEEDED FOR nasal congestion bumetanide 2 mg tablet See Rx Instructions .ROUTE .COMPLEX Qty: 30 2RF Dose Instruction: TAKE ONE TABLET BY MOUTH EVERY MORNING FOR FLUID Rx Instructions: TAKE ONE TABLET BY MOUTH EVERY MORNING FOR FLUID Ventolin HFA 90 mcg/actuation HFA aerosol inhaler 2 puff inhalation Q9H PRN (Reason: shortness of breath or wheezing) 0RF carvedilol 12.5 mg tablet 6.25 mg PO BID Qty: 60 2RF Rx Instructions: must administer with a meal/food Discharge Orders: Discharge ED (Routine); Ordered 12/01/21 Ordered By: Mi Morales Discharge Diet: Advance as tolerated Discharge Activity: Resume usual activity Patient Instructions: Chest Pain (ED) Coding Level of Care Code ED Marketing Programs Manager for Chg Fwd Exam Comprehensive
[2021-12-01 01:57] LABS: Basophils # 0.1 10^3/uL (0.0-0.1); Basophils % 1.9 %; Eosinophils # 0.2 10^3/uL (0.0-0.8); Eosinophils % 2.9 %; Hematocrit 40.6 % (42.0-52.0); Hemoglobin 13.2 g/dL (11.7-16.6); Lymphocytes # 2.2 10^3/uL (0.8-4.8); Lymphocytes % 29.6 %; Mean Corpuscular HGB Conc 32.5 g/dL (30.0-36.0); Mean Corpuscular Hemoglobin 30.9 pg (28.0-34.0); Mean Corpuscular Volume 95.1 fl (80-94); Mean Platelet Volume 10.5 fL (7.4-10.4); Monocytes % 12.9 %; Neutrophils # 3.92 10^3/uL (1.8-7.7); Neutrophils % 52.4 %; Nucleated Red Blood Cells % 0 %; Platelet Count 240 10^3/cmm (130-400); Red Blood Count 4.27 10^6/uL (4.1-5.3); Red Cell Distribution Width 12.7 % (12.1-15.1); White Blood Count 7.5 10^3/uL (4.0-10.0)
[2021-12-01 02:08] VITALS: BP 137/90; PULSE 60; RESP 20; O2SAT 91
[2021-12-01 02:19] LABS: Troponin(5th) Baseline 21 ng/L (0-15)
[2021-12-01 02:24] LABS: Alanine Aminotransferase 14 U/L (0-41); Albumin Level 4.3 g/dL (3.5-5.2); Alkaline Phosphatase 113 IU/L (40-130); Anion Gap 15.2 (5-19); Aspartate Amino Transferase 14 U/L (0-40); Blood Urea Nitrogen 37 mg/dL (6-20); Calcium 8.3 mg/dL (8.5-10.5); Carbon Dioxide 26 mmol/L (22-29); Chloride 104 mmol/L (98-107); Globulin 3.2 g/dL (1.3-4.6); Glomerular Filtration Rate 48.2 mL/min (90-130); Glucose 110 mg/dL (65-115); NT Pro B Type Natriuretic Pept 251 pg/mL (0-125); Osmolality Calculated 301 mOsm/kg (285-295); Potassium 4.2 mmol/L (3.5-5.1); Sodium 141 mmol/L (136-145); Total Bilirubin 0.3 mg/dL (0.15-1.2); Total Protein 7.5 g/dL (6.6-8.7)
[2021-12-01 02:27] LABS: INR 1.14 (0.8-1.2)
[2021-12-01 03:04] VITALS: BP 109/60; PULSE 57; RESP 16; O2SAT 90
--- NOTE | 2021-12-01 03:42 | ECG_ITS ---
[facility] Test Date: 2021-12-01 Pat Name: Matti Lynn Department: Room: Gender: Male Complaint Adjuster: : 1965 Requested By: Mi Morales Order Number: [id number] Otilia MD: Olga Osorio M.D. Measurements Intervals [place] Rate: 56 P: 70 DE: 213 QRS: -52 QRSD: 143 T: 75 QT: 481 QTc: 468 Interpretive Statements SINUS BRADYCARDIA WITH FIRST DEGREE AV BLOCK LEFT AXIS DEVIATION [QRS AXIS < -30] LEFT BUNDLE BRANCH BLOCK [120+ ms QRS DURATION, 80+ ms Q/S IN V1/V2, 85+ ms R IN I/aVL/V5/V6] Compared to ECG 12/01/2021 01:45:20 First degree AV block now present Sinus rhythm no longer present Electronically Signed On 12-01-2021 23:23:42 CDT by Olga Osorio M.D. [id number]
[2021-12-01 03:58] VITALS: BP 97/78; PULSE 58; RESP 16; O2SAT 91
[2021-12-01 04:00] VITALS: BP 120/60; PULSE 59; RESP 16; O2SAT 91
[2021-12-01 04:21] VITALS: BP 120/60; PULSE 56; RESP 15; O2SAT 92
== END 2021-12-01 04:23 | disposition home or self-care (01) ==
PROVIDERS: Emergency Provider Emergency Medicine
DX: R07.9 Chest pain, unspecified (principal); I11.0 Hypertensive heart disease with heart failure; I50.9 Heart failure, unspecified; Z95.810 Presence of automatic (implantable) cardiac defibrillator; Z87.891 Personal history of nicotine dependence; Z79.01 Long term (current) use of anticoagulants; Z79.82 Long term (current) use of aspirin; Z79.02 Long term (current) use of antithrombotics/antiplatelets
CPT/HCPCS: 71045; 80053; 83880; 84484; 85025; 85610; 93005; 99283

== ENCOUNTER 2022-08-13 09:51 | Emergency (ER) | payer SELFPAY ==
[2022-08-13] VITALS (37 sets, daily range): BP systolic 80–133; BP diastolic 42–75; PULSE 47–59; RESP 13–20; O2SAT 89–95; BMI 39.4
--- NOTE | 2022-08-13 09:57 | ECG_ITS ---
[facility] Test Date: 2022-08-13 Pat Name: Matti Lynn Department: Room: Gender: Male Re Examiner: : 1965 Requested By: Matti Aguirre Order Number: [id number] Otilia MD: Olga Osorio M.D. Measurements Intervals [place] Rate: 53 P: 0 MI: 0 QRS: -63 QRSD: 132 T: -12 QT: 480 QTc: 451 Interpretive Statements SINUS BRADYCARDIA INTRAVENTRICULAR CONDUCTION DELAY [130+ ms QRS DURATION] INFERIOR MYOCARDIAL INFARCTION , PROBABLY OLD Compared to ECG 12/01/2021 03:43:58 Intraventricular conduction delay now present Myocardial infarct finding now present Sinus bradycardia no longer present First degree AV block no longer present Left-axis deviation no longer present Left bundle-branch block no longer present Electronically Signed On 08-13-2022 16:53:57 SWING SAW OPERATOR by Olga Osorio M.D. [id number]
--- NOTE | 2022-08-13 09:57 | XRR_ITS ---
PROCEDURE INFORMATION: Exam: XR Chest Exam date and time: 08/13/2022 10:01 AM Age: 57 years old Clinical indication: Pain; Other: Not specified; Prior surgery; Surgery type: Defib; Additional info: Chest pain, low BP TECHNIQUE: Imaging protocol: Radiologic exam of the chest. Views: 1 view. COMPARISON: CR XR chest 1V portable [id number] 12/01/2021 2:11 AM FINDINGS: Tubes, catheters and devices: Cardiac device left anterior chest the lead is intact and well position. Lungs: Unremarkable. No consolidation. Pleural spaces: Unremarkable. No pleural effusion. No pneumothorax. Heart/Mediastinum: Unremarkable. No cardiomegaly. Bones/joints: Unremarkable. Other findings: There has been no interval change comparing to prior examination XR/XR chest 1V portable [id number] IMPRESSION: 1. No acute findings. 2. Cardiac device left anterior chest in good position
[2022-08-13 10:17] LABS: Basophils # 0.1 10^3/uL (0.0-0.1); Basophils % 1.4 %; Eosinophils # 0.3 10^3/uL (0.0-0.8); Eosinophils % 3.8 %; Hematocrit 43.5 % (42.0-52.0); Hemoglobin 13.7 g/dL (11.7-16.6); Lymphocytes # 2.6 10^3/uL (0.8-4.8); Lymphocytes % 30.6 %; Mean Corpuscular HGB Conc 31.5 g/dL (30.0-36.0); Mean Corpuscular Hemoglobin 31.1 pg (28.0-34.0); Mean Corpuscular Volume 98.9 fl (80-94); Mean Platelet Volume 10.6 fL (7.4-10.4); Monocytes % 11.3 %; Neutrophils % 52.5 %; Nucleated Red Blood Cells % 0 %; Platelet Count 273 10^3/cmm (130-400); Red Cell Distribution Width 12.4 % (12.1-15.1); White Blood Count 8.4 10^3/uL (4.0-10.0)
[2022-08-13 10:33] LABS: Troponin(5th) Baseline 29 ng/L (0-15)
[2022-08-13 10:39] LABS: Alanine Aminotransferase 14 U/L (0-41); Albumin Level 4.4 g/dL (3.5-5.2); Alkaline Phosphatase 136 U/L (40-130); Anion Gap 17.3 (5-19); Aspartate Amino Transferase 13 U/L (0-40); Blood Urea Nitrogen 39 mg/dL (6-20); Calcium 8.9 mg/dL (8.5-10.5); Carbon Dioxide 26 mmol/L (22-29); Chloride 100 mmol/L (98-107); Globulin 2.7 g/dL (1.3-4.6); Glomerular Filtration Rate 27.9 mL/min (90-130); Glucose 123 mg/dL (65-115); NT Pro B Type Natriuretic Pept 168 pg/mL (0-125); Osmolality Calculated 299 mOsm/kg (285-295); Potassium 4.3 mmol/L (3.5-5.1); Sodium 139 mmol/L (136-145); Total Bilirubin 0.4 mg/dL (0.15-1.2); Total Protein 7.1 g/dL (6.6-8.7)
--- NOTE | 2022-08-13 10:57 | ED_ITS ---
HPI - Chest Pain General: Chief Complaint: Chest Pain Stated Complaint: CHEST PAIN/ LOW BP Time Seen by Provider: 08/13/22 09:54 Source: patient Mode of arrival: ambulatory History of Present Illness: 57-year-old male who presents to the emergency room in the custody of [employer] law enforcement. He comes from the correction where he was noted to have hypotension this morning and some chest discomfort. He has a history of cardiomyopathy and has a ICD in place. Patient denies any discharges from the ICD, states he has a tingly sensation in that area of his chest.. He had not been doing any exertional activity. I had talked to the correction nurse and he had pressures in the 68-70 systolic range this morning. On arrival here he is still hypotensive but mildly improved from that. He is awake and alert answers questions appropriately. He is not having any chest pain at this time. MD complaint: chest discomfort Onset (ago): hour(s) Timing of current episode: episodic Prior episodes: Yes Onset: during rest Pain location: left chest Pain radiation: none Severity: mild Quality: heaviness Relieving factors: nothing Exacerbating factors: nothing Associated symptoms: Deny abdominal pain, dyspnea, fever(s), nausea or vomiting Review of Systems Const: Denies: fever(s), chills, body aches, change in appetite, fatigue or malaise ENMT: Denies: throat pain, ear or mastoid pain, nasal discharge or nasal congestion Card: Denies: chest pain, edema, dyspnea on exertion or orthopnea Resp: Denies: dyspnea, productive cough or non-productive cough GI: Denies: abdominal pain, nausea, vomiting, hematemesis, coffee ground emesis, diarrhea, constipation, bloating, hematochezia or melena : Denies: flank pain, dysuria, urinary frequency or urinary urgency Skin/Breast: Denies: rash or pruritus PFSH ED PFSH: Medical History Cardiac defibrillator in place CHF (congestive heart failure) Chronic kidney disease, stage 3 CKD (chronic kidney disease) Family history of internal cardiac defibrillator HTN (hypertension) Hyperlipidemia Social History Smoking and tobacco status: former smoker Alcohol intake: never Current occupational status: unemployed Physical Exam Const: COMMON NORMALS: no acute distress GENERAL APPEARANCE: cooperative and comfortable ORIENTATION/CONSCIOUSNESS: Yes awake, Yes oriented to person, Yes oriented to place and Yes oriented to time HENMT: COMMON NORMALS: normocephalic, atraumatic and hearing grossly normal bilaterally HEAD & SCALP: normocephalic and atraumatic Resp: COMMON NORMALS: normal respiratory effort, No retractions, No use of accessory muscles and clear to auscultation bilaterally AUSCULTATION: clear to auscultation bilaterally Cardio: COMMON NORMALS: regular rate, regular rhythm and No murmurs present (Cardio) RATE: regular rate RHYTHM: regular rhythm GI: COMMON NORMALS: Soft to palpation and No hepatosplenomegaly present AUSCULTATION: Yes normoactive bowel sounds PALPATION: Yes Soft to palpation, No Tenderness to palpation present (GI), No Guarding due to palpation present (GI) and Yes No hepatosplenomegaly present Extremity: COMMON NORMALS: normal to inspection, capillary refill normal, no clubbing, cyanosis or edema, no calf tenderness and no pedal edema Neuro: SENSORIUM/ORIENTATION: Yes oriented to person, Yes oriented to place and Yes oriented to time Skin: COMMON NORMALS: no rashes or lesions noted GENERAL SKIN EXAM: no rashes or lesions noted Course Vital Signs: Vital signs: Vital Signs Pulse Rate 48 L 08/13/22 14:33 Respiratory Rate 15 08/13/22 14:33 Blood Pressure 133/69 08/13/22 14:33 Pulse Oximetry 91 08/13/22 14:33 Oxygen Delivery Me thod 08/13/22 10:12 MDM - Chest Pain Medical Decision Making Labs imaging and EKG reviewed. No acute EKG changes reviewed as found in the chart. Troponin trending level with no significant delta. Patient be discharged back to the correction he is fit for confinement. Recommend that he decrease his carvedilol to 6.25 twice daily continue to monitor his blood pressure. No other changes at this time. Medical Records I reviewed the patient's medical records. Lab Data I reviewed the patient's lab results. 08/13/22 10:03 08/13/22 10:03 Radiology Impressions Chest X-Ray 08/13/22 09:57 IMPRESSION: 1. No acute findings. 2. Cardiac device left anterior chest in good position Laboratory Results WBC 8.4 10^3/uL (4.0-10.0) 08/13/22 10:03 RBC 4.40 10^6/uL (4.1-5.3) 08/13/22 10:03 Hgb 13.7 g/dL (11.7-16.6) 08/13/22 10:03 Hct 43.5 % (42.0-52.0) 08/13/22 10:03 MCV 98.9 fl (80-94) H 08/13/22 10:03 MCH 31.1 pg (28.0-34.0) 08/13/22 10:03 MCHC 31.5 g/dL (30.0-36.0) 08/13/22 10:03 RDW 12.4 % (12.1-15.1) 08/13/22 10:03 Plt Count 273 10^3/cmm (130-400) 08/13/22 10:03 MPV 10.6 fL (7.4-10.4) H 08/13/22 10:03 Neut % (Auto) 52.5 % 08/13/22 10:03 Lymph % (Auto) 30.6 % 08/13/22 10:03 [place] % (Auto) 11.3 % 08/13/22 10:03 Eos % (Auto) 3.8 % 08/13/22 10:03 Baso % (Auto) 1.4 % 08/13/22 10:03 Neut # (Auto) 4.40 10^3/uL (1.8-7.7) 08/13/22 10:03 Lymph # (Auto) 2.6 10^3/uL (0.8-4.8) 08/13/22 10:03 [place] # (Auto) 1.0 10^3/uL (0.2-0.9) H 08/13/22 10:03 Eos # (Auto) 0.3 10^3/uL (0.0-0.8) 08/13/22 10:03 Baso # (Auto) 0.1 10^3/uL (0.0-0.1) 08/13/22 10:03 Nucleated RBC % (auto) 0 % 08/13/22 10:03 Nucleated RBCs # 0.0 /100WBC 08/13/22 10:03 Sodium 139 mmol/L (136-145) 08/13/22 10:03 Potassium 4.3 mmol/L (3.5-5.1) 08/13/22 10:03 Chloride 100 mmol/L (98-107) 08/13/22 10:03 Carbon Dioxide 26 mmol/L (22-29) 08/13/22 10:03 Anion Gap 17.3 (5-19) 08/13/22 10:03 BUN 39 mg/dL (6-20) H 08/13/22 10:03 Creatinine 2.4 mg/dL (0.7-1.2) H 08/13/22 10:03 GFR Calculation 27.9 mL/min (90-130) L 08/13/22 10:03 Glucose 123 mg/dL (65-115) H 08/13/22 10:03 Calculated Osmolality 299 mOsm/kg (285-295) H 08/13/22 10:03 Calcium 8.9 mg/dL (8.5-10.5) 08/13/22 10:03 Total Bilirubin 0.4 mg/dL (0.15-1.2) 08/13/22 10:03 AST 13 U/L (0-40) 08/13/22 10:03 ALT 14 U/L (0-41) 08/13/22 10:03 Alkaline Phosphatase 136 U/L (40-130) H 08/13/22 10:03 Troponin T Baseline 29 ng/L (0-15) H 08/13/22 10:03 Troponin T 120 Minute 28.29 ng/L (0-15) H 08/13/22 12:18 Delta Troponin T -0.71 ABS# (0-10) L 08/13/22 12:18 NT-Pro-B Natriuret Pep 168 pg/mL (0-125) H 08/13/22 10:03 Total Protein 7.1 g/dL (6.6-8.7) 08/13/22 10:03 Albumin 4.4 g/dL (3.5-5.2) 08/13/22 10:03 Globulin 2.7 g/dL (1.3-4.6) 08/13/22 10:03 Discharge Plan Discharge Patient Disposition: Home Clinical Impression: Cardiomyopathy, Hypotension Condition: Stable Prescriptions: Changed carvedilol 12.5 mg tablet 6.25 mg PO BID Qty: 60 5RF Rx Instructions: must administer with a meal/food No Action Ventolin HFA 90 mcg/actuation HFA aerosol inhaler 2 puff inhalation Q9H PRN (Reason: shortness of breath or wheezing) Qty: 18 3RF Eliquis 5 mg tablet 5 mg PO BID Qty: 60 5RF clopidogrel 75 mg tablet 75 mg PO QAM erythromycin 5 mg/gram (0.5 %) Ointment See Rx Instructions .ROUTE .COMPLEX Rx Instructions: 3 drops each eye bid@07:00,19:00 for 7 days bumetanide 2 mg tablet 2 mg PO QAM atorvastatin 10 mg tablet 10 mg PO QAM amiodarone 200 mg tablet 200 mg PO QAM aspirin [Adult Low Dose Aspirin] 81 mg tablet,delayed release (DR/EC) 81 mg PO QAM spironolactone 25 mg tablet 25 mg PO QAM olmesartan 20 mg tablet 10 mg PO QAM [place] Poly Dex Drops,Suspension See Rx Instructions .ROUTE .COMPLEX Rx Instructions: 2 drops in each ear bid for 7 days Discharge Orders: Discharge ED (Routine); Ordered 08/13/22 Ordered By: Matti Martinez Discharge Diet: Low Salt Discharge Activity: Increase activity as tolerated Patient Instructions: Opioid Safety, Pain Management Activity Restrictions/Additional Instructions: You were seen and evaluated for low blood pressure and low heart rate. Recommend that you decrease your carvedilol to 6.25 mg 1 p.o. twice daily. I have discussed with the medical staff at the [facility]. I do recommend at some point if you are released you may need to reevaluate the changes made while you are incarcerated. Coding Level of Care Code ED Catcher Filter Tip for Yesika Goyal
[2022-08-13 13:06] LABS: Troponin 5 2HR 28.29 ng/L (0-15)
[2022-08-13 13:07] LABS: Troponin 5 2HR Delta -0.71 ABS# (0-10)
== END 2022-08-13 14:36 | disposition home or self-care (01) ==
PROVIDERS: Emergency Provider Family Medicine
DX: I42.9 Cardiomyopathy, unspecified (principal); I95.9 Hypotension, unspecified; Z79.01 Long term (current) use of anticoagulants; Z79.02 Long term (current) use of antithrombotics/antiplatelets; Z79.82 Long term (current) use of aspirin; I13.0 Hypertensive heart and chronic kidney disease with heart failure and stage 1 through stage 4 chronic kidney disease, or unspecified chronic kidney disease; N18.30 Chronic kidney disease, stage 3 unspecified; I50.9 Heart failure, unspecified; E78.5 Hyperlipidemia, unspecified; Z95.810 Presence of automatic (implantable) cardiac defibrillator; Z87.891 Personal history of nicotine dependence
CPT/HCPCS: 71045; 80053; 83880; 84484; 85025; 93005; 99285